=== PATIENT | male | born 1985 | race Caucasian/White ===

== ENCOUNTER 2020-01-28 16:09 | Emergency (ER) | payer OTHER ==
[~2020-01-28] VITALS: Ht 177.8 cm; Wt 90.9 kg
[2020-01-28 16:10] VITALS: BP 140/98
== END 2020-01-28 17:12 | disposition home or self-care (01) ==
LOC: ER 16:10
DX: R06.02 Shortness of breath (principal); Z20.828 Contact with and (suspected) exposure to other viral communicable diseases
CPT/HCPCS: 36415; 87635; 99283